=== PATIENT | female | born 2005 | race Caucasian/White ===

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

== ENCOUNTER 2024-03-20 20:29 | Emergency (ER) | payer MEDICAID ==
[~2024-03-20] VITALS: Ht 154.9 cm; Wt 65.8 kg
[~2024-03-20 20:29] MED LIST changes: +DOCU-299 PO; +DOCU283N RC; +POLY17PD72 PO
[2024-03-20 20:46] VITALS: BP 121/76; PULSE 110; RESP 18; TEMP 98.8; O2SAT 99
[2024-03-20] MEDS: ACETAMINOPHEN 325 MG TAB PO ONE (21:17)
[2024-03-20 21:26] LABS: FLU A ANTIGEN negative (NEGATIVE)
[2024-03-20 21:32] LABS: FLU B ANTIGEN POSITIVE (NEGATIVE)
[2024-03-20] MEDS ORDERED: IBUP-2213 PO (22:09)
[2024-03-20] MEDS ORDERED: PROM118S5 PO (22:09)
[2024-03-20] MEDS ORDERED: ONDA-188 PO (22:09)
[2024-03-20 22:15] VITALS: BP 123/63; PULSE 115; RESP 20; TEMP 100.1; O2SAT 97
== END 2024-03-20 22:15 | disposition home or self-care (01) ==
LOC: MED 20:29
DX: J10.1 Influenza due to other identified influenza virus with other respiratory manifestations (principal); Z20.822 Contact with and (suspected) exposure to COVID-19; Z79.1 Long term (current) use of non-steroidal anti-inflammatories (NSAID); Z79.899 Other long term (current) drug therapy
CPT/HCPCS: 99283

== ENCOUNTER 2024-07-17 18:19 | Emergency (ER) | payer SELFPAY ==
[~2024-07-17] VITALS: Ht 157.5 cm; Wt 63.5 kg
[~2024-07-17 18:19] MED LIST changes: +IBUP-2213 PO; +ONDA-188 PO; +PROM118S5 PO
[2024-07-17 18:21] VITALS: BP 119/76; PULSE 117; RESP 20; TEMP 99.6; O2SAT 97
[2024-07-17] MEDS: ONDANSETRON 4 MG/2 ML VIAL IVP ONE (19:01)
[2024-07-17] MEDS: FAMOTIDINE 20 MG/2 ML VIAL IVP ONE (19:03)
[2024-07-17 19:05] LABS: BASOPHILS # (AUTO) 0.1 K/uL (0.00-0.22); BASOPHILS % (AUTO) 0.5 % (0.0-2.0); HEMATOCRIT 38.4 % (36-48); LYMPHOCYTES # (AUTO) 1.8 K/uL (2.5-16.5); LYMPHOCYTES % (AUTO) 12.4 % (20.5-51.1); MEAN CORPUSCULAR HEMOGLOBIN 30 pg (27-31); MEAN CORPUSCULAR HGB CONC 34 g/dL (33-37); MEAN CORPUSCULAR VOLUME 90.3 fL (80-94); MONOCYTES # (AUTO) 1.1 K/uL (0.8-1.0); MONOCYTES % (AUTO) 7.9 % (1.7-9.3); NEUTROPHILS # (AUTO) 11.3 K/uL (1.8-7.7); NEUTROPHILS % (AUTO) 79.2 % (42.2-75.2); PLATELET COUNT (AUTO) 328 K/uL (140-450); RED BLOOD CELL COUNT(AUTO) 4.26 MIL/uL (4.20-5.40); RED CELL DISTRIBUTION WIDTH 13.1 % (11.6-13.7); WHITE BLOOD COUNT (AUTO) 14.3 K/uL (4.8-10.8)
[2024-07-17 19:09] LABS: APPEARANCE,URINE CLEAR (CLEAR); BILIRUBIN,URINE NEGATIVE (NEGATIVE); BLOOD, URINE NEGATIVE (NEGATIVE); COLOR,URINE YELLOW (YELLOW); LEUKOCYTE ESTERASE ,URINE NEGATIVE (NEGATIVE); NITRITE, URINE NEGATIVE (NEGATIVE); PH,URINE 6.5 (5.0-9.0); PROTEIN,URINE TRACE (NEGATIVE); UGLUCOSE NEGATIVE (NEGATIVE); UROBILINOGEN,URINE 0.2 EU/dL (0.2 - 1)
[2024-07-17] MEDS: MORPHINE SULFATE 4 MG/ML SYR IVP ONE (19:12)
[2024-07-17] MEDS: NACL 0.9% 1,000 ML IV ONE (19:12)
[2024-07-17 19:22] LABS: AMPHETAMINE, URINE NEGATIVE ng/ml (NEG <=1000); BARBITURATE, URINE NEGATIVE ng/ml (NEG <=200); BENZODIAZEPINE, URINE NEGATIVE ng/mL (NEG <=200); CANNABINOID, URINE NEGATIVE ng/mL (NEG <=50); COCAINE, URINE NEGATIVE ng/mL (NEG <=300); OPIATE, URINE NEGATIVE ng/mL (NEG <=2000); PHENCYCLIDINE SCREEN,URINE NEGATIVE ng/mL (NEG <=25)
[2024-07-17 19:26] LABS: ANION GAP 11.6 (8-16); CALCIUM 9.2 mg/dL (8.5-10.1); CARBON DIOXIDE 28.9 mmol/L (21-32); CREATININE 0.9 mg/dL (0.6-1.3); POTASSIUM 3.5 mmol/L (3.5-5.1)
[2024-07-17 19:30] LABS: ALBUMIN 3.9 g/dL (3.4-5.0); BILIRUBIN,DIRECT 0.1 mg/dL (0.0-0.3); TOTAL BILIRUBIN 0.5 mg/dL (0.0-1.0); TOTAL PROTEIN, SERUM 7.9 g/dL (6.4-8.2)
[2024-07-17 22:41] VITALS: BP 109/65; PULSE 97; RESP 17; TEMP 98.8; O2SAT 98
== END 2024-07-17 22:41 | disposition home or self-care (01) ==
LOC: MED 18:19
DX: R10.13 Epigastric pain (principal); R10.11 Right upper quadrant pain; R11.2 Nausea with vomiting, unspecified; Z79.899 Other long term (current) drug therapy
CPT/HCPCS: 36415; 74177; 76705; 80048; 80076; 80305; 81003; 81025; 83605; 83690; 85025; 87040; 96361; 96374; 96375; 99285; J2270; J2405; J3490; J7030; Q0092; Q9967